=== PATIENT | male | born 1960 | race Two or more races ===

== ENCOUNTER 2023-08-25 11:49 | Outpatient (CLI) | payer OTHER ==
[2023-08-25 13:05] LABS: HEMATOCRIT 39.6 % (39.0-48.0); HEMOGLOBIN 13.3 g/dL (13-16.00); MEAN CELL VOLUME 80.5 fL (80.0-100.00); MEAN CORPUSCULAR HGB CONC 33.6 g/dl (32.0-36.0); PLATELET COUNT 194 K/uL (150-450); RED BLOOD COUNT 4.92 M/uL (4.00-6.00); RED CELL DISTRIBUTION WIDTH 14.6 % (11.5-14.5); URINE APPEARANCE Clear; URINE BILIRRUBIN Negative (NEGATIVE); URINE BLOOD Small; URINE COLOR Yellow; URINE GLUCOSE Negative (NEGATIVE); URINE LEUKOCYTE Negative; URINE NITRATE Negative; URINE PROTEIN Negative (NEGATIVE); URINE UROBILINOGEN 0.2 E.U./dl
[2023-08-25 13:09] LABS: URINE BACTERIA 52.9 uL (0.0-1933); URINE EPITHELIAL CELLS 3.9 uL (0.0-38.8); URINE RBC 5.4 uL (0.0-20.8); URINE WBC 2.1 uL (0.0-23.2)
[2023-08-25 13:18] LABS: ob NEGATIVE (NEGATIVE)
[2023-08-25 13:46] LABS: ALBUMIN 4.2 gm/dL (3.4-5.0); BILIRUBIN TOTAL 0.51 mg/dL (0.3-1.2); CALCIUM 9.7 mg/dL (8.5-10.1); CHOL HDL RATIO 3.8 (0-5.0); CREATININE SERUM 1.01 mg/dL (0.70-1.30); GFR 74.37; GLOBULINA 3.2 G/DL (2.4-3.5); POTASSIUM 4.35 mEq/L (3.5-5.1); PROSTATIC SPECIFIC ANTIGEN 0.016 NG/ML (0.010-4.00); TOTAL PROTEIN 7.4 gm/dL (6.4-8.2); TSH 1.35 uIU/mL (0.358-3.74)
== END 2023-08-25 11:58 | disposition home or self-care (01) ==
LOC: LAB 11:49
DX: E03.9 Hypothyroidism, unspecified (principal); R73.01 Impaired fasting glucose; E55.9 Vitamin D deficiency, unspecified; Z12.11 Encounter for screening for malignant neoplasm of colon; Z12.5 Encounter for screening for malignant neoplasm of prostate; E78.01 Familial hypercholesterolemia

== ENCOUNTER 2023-12-27 09:06 | Outpatient (CLI) | payer OTHER ==
[2023-12-27 09:50] LABS: URINE APPEARANCE Clear; URINE BILIRRUBIN Negative (NEGATIVE); URINE BLOOD Negative; URINE COLOR Yellow; URINE GLUCOSE Negative (NEGATIVE); URINE KETONE Negative (NEGATIVE); URINE LEUKOCYTE Negative; URINE NITRATE Negative; URINE PROTEIN Negative (NEGATIVE); URINE UROBILINOGEN 0.2 E.U./dl
[2023-12-27 09:54] LABS: URINE BACTERIA 13.8 uL (0.0-1933); URINE EPITHELIAL CELLS 3.2 uL (0.0-38.8); URINE RBC 4.4 uL (0.0-20.8); URINE WBC 2.4 uL (0.0-23.2)
[2023-12-27 10:19] LABS: HEMATOCRIT 37.7 % (39.0-48.0); HEMOGLOBIN 12.7 g/dL (13-16.00); MEAN CELL VOLUME 80.3 fL (80.0-100.00); MEAN CORPUSCULAR HEMOGLOBIN 27.2 pg (27.00-32.0); MEAN CORPUSCULAR HGB CONC 33.8 g/dl (32.0-36.0); PLATELET COUNT 185 K/uL (150-450); RED BLOOD COUNT 4.69 M/uL (4.00-6.00); RED CELL DISTRIBUTION WIDTH 14.7 % (11.5-14.5)
[2023-12-27 10:41] LABS: BILIRUBIN TOTAL 0.41 mg/dL (0.3-1.2); CALCIUM 9.4 mg/dL (8.5-10.1); CHOL HDL RATIO 3.8 (0-5.0); CREATININE SERUM 1.08 mg/dL (0.70-1.30); GFR 68.83; POTASSIUM 4.32 mEq/L (3.5-5.1); PROSTATIC SPECIFIC ANTIGEN 0.016 NG/ML (0.010-4.00); TSH 1.89 uIU/mL (0.358-3.74)
== END 2023-12-27 09:07 | disposition home or self-care (01) ==
LOC: LAB 09:06
DX: E78.01 Familial hypercholesterolemia (principal); N40.1 Benign prostatic hyperplasia with lower urinary tract symptoms; E03.9 Hypothyroidism, unspecified; R73.01 Impaired fasting glucose

== ENCOUNTER 2024-11-15 08:20 | Outpatient (CLI) | payer OTHER ==
[2024-11-15 09:47] LABS: BASO % 0.7 % (0.1-1.2); EOS # 0.26 (0.04-0.54); EOS % 3.8 % (0.7-7.0); HEMATOCRIT 36.6 % (40.1-51.0); HEMOGLOBIN 11.7 g/dL (13.7-17.5); LYMPH # 1.62 (1.18-3.74); LYMPH % 23.9 % (19.3-53.1); MEAN CORPUSCULAR HEMOGLOBIN 25.6 pg (25.6-32.2); MONO # 0.99 (0.24-0.82); NEUT # 3.81 (1.56-6.13); NEUT % 56.4 % (34.0-71.1); PLATELET COUNT 215 K/uL (163-369); RED BLOOD COUNT 4.57 M/uL (4.63-6.08); RED CELL DISTRIBUTION WIDTH 14.1 % (11.6-14.4)
[2024-11-15 09:51] LABS: MONO % 14.6 % (4.7-12.5)
[2024-11-15 09:55] LABS: PH,URINE 5.5 (5.0-8.0); URINE APPEARANCE Clear; URINE BILIRRUBIN Negative (NEGATIVE); URINE BLOOD Small; URINE COLOR Yellow; URINE GLUCOSE Negative (NEGATIVE); URINE KETONE Negative (NEGATIVE); URINE LEUKOCYTE Negative; URINE NITRATE Negative; URINE PROTEIN Negative (NEGATIVE); URINE UROBILINOGEN 0.2 E.U./dl
[2024-11-15 09:59] LABS: URINE BACTERIA 4.8 uL (0.0-1933); URINE EPITHELIAL CELLS 3.1 uL (0.0-38.8); URINE RBC 11.1 uL (0.0-20.8); URINE WBC 3.6 uL (0.0-23.2)
[2024-11-15 10:09] LABS: URINE CAST 0.29 uL (0.0-1.40)
[2024-11-15 10:12] LABS: ALBUMIN 3.5 gm/dL (3.4-5.0); BILIRUBIN TOTAL 0.52 mg/dL (0.3-1.2); CALCIUM 8.8 mg/dL (8.5-10.1); CHOL HDL RATIO 3.7 (0-5.0); CREATININE SERUM 0.97 mg/dL (0.70-1.30); GFR 77.67; GLOBULINA 3.3 G/DL (2.4-3.5); POTASSIUM 4.08 mEq/L (3.5-5.1); PROSTATIC SPECIFIC ANTIGEN 0.018 NG/ML (0.010-4.00); TOTAL PROTEIN 6.8 gm/dL (6.4-8.2); TSH 0.866 uIU/mL (0.358-3.74)
== END 2024-11-15 08:28 | disposition home or self-care (01) ==
LOC: LAB 08:20
DX: E78.01 Familial hypercholesterolemia (principal); R73.01 Impaired fasting glucose; E03.8 Other specified hypothyroidism; N40.1 Benign prostatic hyperplasia with lower urinary tract symptoms; Z12.11 Encounter for screening for malignant neoplasm of colon